=== PATIENT | female | born 1985 | race Caucasian/White ===

== ENCOUNTER 2017-12-27 23:47 | Inpatient (IN) | payer OTHER, BC ==
[~2017-12-27] VITALS: Ht 172.7 cm; Wt 65.0 kg
[~2017-12-27 23:47] MED LIST: IBUP-1222 PO; OXYC-302 PO; PREN1TAB56 PO
[2017-12-27 23:55] VITALS: BP 112/70
[2017-12-28] MEDS ORDERED: SODIUM CITRATE/CITRIC ACID 30 ML UDC ONE (00:13)
[2017-12-28] MEDS ORDERED: METOCLOPRAMIDE 5 MG/ML, 2ML ONE (00:14)
[2017-12-28] MEDS ORDERED: OXYTOCIN 30U/ 0.9% NaCL 500ML 500 ML ONE (00:14)
[2017-12-28] MEDS ORDERED: NEWBORN KIT ONE (00:14)
[2017-12-28] MEDS ORDERED: OXYTOCIN 30U/ 0.9% NaCL 500ML 500 ML IV SCH (00:16)
[2017-12-28] MEDS ORDERED: SODIUM CITRATE/CITRIC ACID 30 ML UDC PO ONE (00:30)
[2017-12-28] MEDS ORDERED: LACTATED RINGERS 1,000 ML IV SCH (00:30)
[2017-12-28] MEDS ORDERED: LACTATED RINGERS 1,000 ML IVBOLUS ONE (00:30)
[2017-12-28] MEDS ORDERED: METOCLOPRAMIDE 5 MG/ML, 2ML IV ONE (00:30)
[2017-12-28 00:39] LABS: BASOPHILS # (AUTO) 0.05 x10^3/uL (0-0.1); BASOPHILS % (AUTO) 0 % (0-1); EOSINOPHILS # (AUTO) 0.05 x10^3/uL (0-0.4); EOSINOPHILS % (AUTO) 0 % (1-7); LYMPHOCYTES # (AUTO) 1.72 x10^3/uL (1-3.4); LYMPHOCYTES % (AUTO) 15 % (22-44); MD NO; MEAN CORPUSCULAR HEMOGLOBIN 30.2 pg (27.0-34.8); MEAN CORPUSCULAR HGB CONC 33.2 g/dL (32.4-35.8); MEAN PLATELET VOLUME 8.8 fL (7.4-10.4); MONOCYTES # (AUTO) 0.55 x10^3/uL (0.2-0.8); MONOCYTES % (AUTO) 5 % (2-9); NEUTROPHILS # (AUTO) 9.02 x10^3/uL (1.8-6.8); NEUTROPHILS % (AUTO) 79 % (42-75); PLATELET COUNT 214 x10^3/uL (130-400); RED CELL DISTRIBUTION WIDTH 13.3 % (9.6-15.2)
[2017-12-28] MEDS ORDERED: PLEASE ENTER HEIGHT AND WEIGHT MC SCH (01:00)
[2017-12-28] MEDS ORDERED: EPHEDRINE 50 MG/ML, 1ML ONE ×2 (01:07→02:12)
[2017-12-28] MEDS ORDERED: WATER-INJECTION,STERILE 10 ML IV ONE (01:07)
[2017-12-28] MEDS ORDERED: CEFAZOLIN 1,000 MG ONE (01:07)
[2017-12-28] MEDS ORDERED: PHENYLEPHRINE 10 MG/ML ONE (01:07)
[2017-12-28] MEDS ORDERED: OXYTOCIN 10 UNITS/ML, 1ML ONE (01:07)
[2017-12-28] MEDS ORDERED: ONDANSETRON 2MG/ML, 2ML ONE (01:07)
[2017-12-28] MEDS ORDERED: TERBUTALINE 1 MG/ML, 1ML ONE (01:58)
[2017-12-28] MEDS ORDERED: TERBUTALINE 1 MG/ML, 1ML IVPush PRN (02:00)
[2017-12-28] MEDS: LACTATED RINGERS 1,000 ML IV SCH ×7 (02:05→22:34)
[2017-12-28] MEDS ORDERED: KETOROLAC 30 MG/1 ML ONE (02:12)
[2017-12-28] MEDS ORDERED: PREN1TAB60 PO (04:06)
[2017-12-28] MEDS ORDERED: [UNRECOGNIZED DRUG - OTHER] (04:06)
[2017-12-28] MEDS ORDERED: ONDANSETRON 2MG/ML, 2ML IV PRN ×2 (04:30→07:00)
[2017-12-28] MEDS ORDERED: KETOROLAC 30 MG/1 ML IVPush PRN (04:30)
[2017-12-28 05:15] VITALS: BP 107/66
[2017-12-28] MEDS: OXYTOCIN 30U/ 0.9% NaCL 500ML 500 ML IV SCH ×2 (06:34→16:34)
[2017-12-28] MEDS ORDERED: MISOPROSTOL 200 MCG TABLET PR PRN (07:00)
[2017-12-28] MEDS ORDERED: CALCIUM CARBONATE 500 MG TAB.CHEW PO PRN (07:00)
[2017-12-28] MEDS ORDERED: OXYcodone IR 5MG TABLET PO PRN ×2 (07:00)
[2017-12-28] MEDS ORDERED: morphine SULFATE 10 MG/ML, 1ML IVPush PRN ×2 (07:00)
[2017-12-28] MEDS ORDERED: BISACODYL 10 MG SUPP PR PRN (07:00)
[2017-12-28] MEDS: DOCUSATE 100 MG CAPSULE PO PRN ×2 (07:39→19:27)
[2017-12-28] MEDS: ACETAMINOPHEN 325 MG TABLET PO SCH ×3 (07:39→19:27)
[2017-12-28] MEDS: PRENATAL VIT/IRON/FA 1 EACH TABLET PO SCH (07:39)
[2017-12-28 08:00] VITALS: BP 108/68
[2017-12-28] MEDS: KETOROLAC 30 MG/1 ML IV SCH ×3 (09:47→21:43)
[2017-12-28 11:53] LABS: MEAN CORPUSCULAR HEMOGLOBIN 30.3 pg (27.0-34.8); MEAN CORPUSCULAR VOLUME 91.8 fL (80-100); MEAN PLATELET VOLUME 8.9 fL (7.4-10.4); PLATELET COUNT 184 x10^3/uL (130-400); RED BLOOD COUNT 3.56 x10^6/uL (3.82-5.3); RED CELL DISTRIBUTION WIDTH 13.5 % (9.6-15.2)
[2017-12-28 12:36] LABS: BASOPHILS # (AUTO) 0.01 x10^3/uL (0-0.1); BASOPHILS % (AUTO) 0 % (0-1); EOSINOPHILS # (AUTO) 0.01 x10^3/uL (0-0.4); EOSINOPHILS % (AUTO) 0 % (1-7); LYMPHOCYTES # (AUTO) 1.09 x10^3/uL (1-3.4); LYMPHOCYTES % (AUTO) 7 % (22-44); MD SCAN; MONOCYTES # (AUTO) 0.56 x10^3/uL (0.2-0.8); MONOCYTES % (AUTO) 4 % (2-9); NEUTROPHILS # (AUTO) 13.57 x10^3/uL (1.8-6.8); NEUTROPHILS % (AUTO) 89 % (42-75)
[2017-12-28 12:45] VITALS: BP 111/68
[2017-12-28] MEDS: SIMETHICONE 80 MG CHEW TAB PO PRN ×2 (14:44→21:43)
[2017-12-28 15:45] VITALS: BP 110/64
[2017-12-28 19:20] VITALS: BP 113/68
[2017-12-29] MEDS: ACETAMINOPHEN 325 MG TABLET PO SCH ×3 (00:56→13:42)
[2017-12-29 01:00] VITALS: BP 110/67
[2017-12-29] MEDS: OXYTOCIN 30U/ 0.9% NaCL 500ML 500 ML IV SCH (02:34)
[2017-12-29] MEDS: LACTATED RINGERS 1,000 ML IV SCH ×2 (02:34→06:34)
[2017-12-29] MEDS: KETOROLAC 30 MG/1 ML IV SCH (03:54)
[2017-12-29] MEDS ORDERED: IBUPROFEN 600 MG TABLET PO SCH (07:00)
[2017-12-29 07:10] VITALS: BP 106/69
[2017-12-29] MEDS: SIMETHICONE 80 MG CHEW TAB PO PRN (07:28)
[2017-12-29] MEDS: DOCUSATE 100 MG CAPSULE PO PRN (07:29)
[2017-12-29] MEDS: PRENATAL VIT/IRON/FA 1 EACH TABLET PO SCH (07:29)
[2017-12-29] MEDS ORDERED: ACETAMINOPHEN 325 MG TABLET ONE (13:41)
== END 2017-12-29 14:43 | disposition home or self-care (01) | DRG 766 ==
LOC: LDOP 23:47 → LDIP 12-28 00:18 → 2NW 12-28 05:00
PROVIDERS: ADMIT Obstetrics & Gynecology Maternal & Fetal Medicine; ATTEND Obstetrics & Gynecology Maternal & Fetal Medicine
PROC: 10D00Z1 Extraction of Products of Conception, Low, Open Approach (ICD-10-PCS; principal; 2017-12-28)
PROC: 0UB70ZZ Excision of Bilateral Fallopian Tubes, Open Approach (ICD-10-PCS; 2017-12-28)
DX: O34.211 Maternal care for low transverse scar from previous cesarean delivery (principal); O99.62 Diseases of the digestive system complicating childbirth; K66.0 Peritoneal adhesions (postprocedural) (postinfection); Z3A.38 38 weeks gestation of pregnancy; Z37.0 Single live birth; Z30.2 Encounter for sterilization
CPT/HCPCS: 36415; 85025; 86850; 86900; 88302; 89060; J0690; J1885; J2405; J2370; J2590; J2765; J3105; J7120; Q0114